=== PATIENT | female | born 1985 | race Caucasian/White ===

== ENCOUNTER 2019-10-05 17:10 | Emergency (ER) | payer OTHER, SELFPAY ==
[2019-10-05 17:18] VITALS: BP 99/80; PULSE 113; RESP 24; TEMP 36.8; O2SAT 100
--- NOTE | 2019-10-05 17:22 | ED.DENTAL ---
HPI - Dental/Oral General Chief complaint: Dental/Oral Stated complaint: tooth pain Time Seen by Provider: 10/05/19 17:24 Source: patient and RN notes reviewed Mode of arrival: ambulatory Limitations: no limitations History of Present Illness HPI Narrative: 33 old female presents with concern for right upper dental pain. She also reports right lower dental pain. Reports a tooth with a hole in and on the right upper side that she has been dealing with for approximately a year. Reports she has been treated one other time in the past year for an abscess in that tooth. Reports she has been trying to get into a dentist. She also reports a painful tooth on the right lower side. She denies any acute injury or dental trauma. She denies fever, cough, chest pain, shortness of breath, rash. Reports right-sided facial swelling. MD Complaint: tooth pain Teeth map: 1. Broken tooth, caries 2. Broken, caries Related Data Home Medications Medication Instructions Recorded Confirmed desogestrel-ethinyl estradiol 1 tablet PO DAILY 05/10/19 05/10/19 [Velivet Triphasic Regimen (28)] Allergies Allergy/AdvReac Type Severity Reaction Status Date / Time No Known Allergies Allergy Verified 10/05/19 17:34 Review of Systems Review of Systems: Narrative: CONSTITUTIONAL: Denies malaise, chills, sweats, or fever. ENT: Denies rhinorrhea, congestion, sinus pain, otalgia or sore throat. Reports right upper and lower dental pain, right upper facial swelling CARDIOVASCULAR: Denies chest pain, palpitations, or edema. RESPIRATORY: Denies cough or dyspnea. MUSCULOSKELETAL: Denies myalgia. NEUROLOGIC: Denies headache. All systems reviewed & are unremarkable except as noted in HPI and below PMFSH Past Medical History Medical History (Updated 10/05/19 @ 17:32 by Breana Lyons NP) Anxiety and depression Social History Social History (Updated 05/10/19 @ 09:17 by Le Leon NP) Smoking packs per day: 0.5 Smoking cigarettes per day: 10.0 Years smoked: 17 Smoking pack-years: 8.50 Smoking status: Current every day smoker Tobacco type: cigarettes Comments At time of signature, agree with nursing past medical, surgical, social and family history. There is no relevant family history pertinent to the presenting complaint Exam Narrative: Exam Narrative: GENERAL: Well-appearing, well-nourished, and in no acute distress. HEAD: Normocephalic, atraumatic. EYES: PERRLA, conjunctivae clear, and EOMI. No nystagmus. ENT: Nares clear, turbinates pink, no rhinorrhea or epistaxis. Mucous membranes moist. Oropharynx without erythema or lesions. Broken teeth, missing teeth, caries, tooth #1 broken, tooth #30 broken. No periapical abscess. Mild right facial edema consistent with abscess NECK: Supple. No lymphadenopathy. CHEST: No respiratory distress. Speaks in full sentences. HEART: Regular rate and rhythm. SKIN: Warm, dry, no rash. NEURO: Alert and oriented x3. PSYCH: Normal mood and affect Course Course Emergency Course: Patient is aware of diagnosis, understands and agrees to treatment plan. Anticipatory guidance given. Patient agrees to follow-up as directed and is aware of reasons to seek care at the emergency department. Portions of this record may have been created with voice recognition software Vital Signs Vital signs: Vital Signs Temperature 98.2 F 10/05/19 17:18 Pulse Rate 113 H 10/05/19 17:18 Respiratory Rate 24 H 10/05/19 17:18 Blood Pressure 99/80 L 10/05/19 17:18 Pulse Oximetry 100 10/05/19 17:18 Temperature 98.2 F 10/05/19 17:18 Pulse Rate 113 H 10/05/19 17:18 Respiratory Rate 24 H 10/05/19 17:18 Blood Pressure 99/80 L 10/05/19 17:18 Pulse Oximetry 100 10/05/19 17:18 Reviewed. MDM - Dental/Oral MDM Narrative Medical decision making narrative: Patients pain and complaint coupled with physical findings are consistant with dentalgia. There are no focal signs of space
== END 2019-10-05 17:38 | disposition home or self-care (01) ==
PROVIDERS: Emergency Provider Nurse Practitioner
DX: K04.7 Periapical abscess without sinus (principal); F17.210 Nicotine dependence, cigarettes, uncomplicated
CPT/HCPCS: 99213; G0463

== ENCOUNTER 2019-12-30 14:45 | Emergency (ER) | payer OTHER, SELFPAY ==
[2019-12-30 14:56] VITALS: BP 132/82; PULSE 90; RESP 20; TEMP 37.2; O2SAT 100
--- NOTE | 2019-12-30 15:25 | ED.GENADULT ---
HPI - General Adult General Chief complaint: Upper Respiratory Infection Stated complaint: sore throat Time Seen by Provider: 12/30/19 15:25 Source: patient and RN notes reviewed Mode of arrival: ambulatory Limitations: no limitations History of Present Illness HPI narrative: This is a 34 years old female presents to the office for an evaluation of sore throat for two days. Associated with feeling warm/chills. She took two days of her left over amoxicillin for her symptoms. Denies sick contact. Related Data Allergies Allergy/AdvReac Type Severity Reaction Status Date / Time No Known Allergies Allergy Verified 12/30/19 15:07 Review of Systems Review of Systems: Narrative: CONSTITUTIONAL: Denies fever. Reports hot flash/chills EYES: Denies visual changes ENT: Denies congestion. Reports sore throat CARDIOVASCULAR: Denies chest pain, palpitation RESPIRATORY: Denies dyspnea, cough GASTROINTESTINAL: Denies abdominal pain, nausea, vomiting SKIN: Denies rash MUSCULOSKELETAL: Denies acute joints pain NEUROLOGIC: Denies lightheaded All other systems reviewed are negative, except as documented in HPI. [facility] Past Medical History Medical History Anxiety and depression Social History Social History Smoking packs per day: 0.5 Smoking cigarettes per day: 10.0 Years smoked: 17 Smoking pack-years: 8.50 Smoking status: Current every day smoker Tobacco type: cigarettes Comments At time of signature, I agree with nursing past medical, surgical, social and family history. There is no relevant family history pertinent to the presenting complaint. Exam Narrative: Exam Narrative: GENERAL: This is a well-nourished, well-developed patient, in no apparent distress. EYES: Sclera clear/white. Vision is grossly intact. EARS: External ears normal, auditory canals clear and without drainage, TMs normal without perforation. Hearing grossly intact. NOSE: External nose normal with no obvious nasal discharge, nares without redness, no rhinorrhea. THROAT: Mucous membranes moist, posterior pharynx erythema, edematous with exudative NECK: Neck supple, non-tender without lymphadenopathy, masses or thyromegaly. CARDIOVASCULAR: Regular rate and rhythm without murmurs, gallops, or rubs. RESPIRATORY: Clear to auscultation. Breath sounds equal bilaterally. No wheezes, rales, or rhonchi. GASTROINTESTINAL: Abdomen soft, non-tender, nondistended. Bowel sounds are active. No hepato-splenomegaly, or palpable masses. No guarding. SKIN: warm, intact with no suspicious lesions or rash, good texture and turgor. NEURO: awake, alert, and oriented to person, place and time. There were no obvious focal neurologic abnormalities. Steady gait Jake Coma Scale Eye Opening: Spontaneous 4 Jake Coma Scale Motor: Obeys Commands 6 [place] Coma Scale Verbal: Oriented 5 Course Vital Signs Vital signs: Vital Signs Temperature 98.9 F 12/30/19 14:56 Pulse Rate 90 12/30/19 14:56 Respiratory Rate 20 12/30/19 14:56 Blood Pressure 132/82 12/30/19 14:56 Pulse Oximetry 100 12/30/19 14:56 Temperature 98.9 F 12/30/19 14:56 Pulse Rate 90 12/30/19 14:56 Respiratory Rate 20 12/30/19 14:56 Blood Pressure 132/82 12/30/19 14:56 Pulse Oximetry 100 12/30/19 14:56 Medical Decision Making MDM Narrative Medical decision making narrative: Discharge instructions reviewed with patient, as well as provided in writing per nursing staff. The instructions also include specific and strict return/GO TO THE ER as well as f/u information. All questions have been answered, and the patient deny any further questions with discharge and discharge plan. Differential Diagnosis Differential Diagnosis: Pharyngitis, sinusitis, URI Vital Signs Vital Signs: Vital Signs Temperature 98.9 F 12/30/19 14:56 Pulse Rate 90 12/30/19 14:56 Resp
== END 2019-12-30 15:39 | disposition home or self-care (01) ==
PROVIDERS: Emergency Provider Nurse Practitioner
DX: J03.90 Acute tonsillitis, unspecified (principal); F17.210 Nicotine dependence, cigarettes, uncomplicated
CPT/HCPCS: 87081; 87880; 99213; G0463

== ENCOUNTER 2020-03-17 16:42 | Emergency (ER) | payer OTHER, SELFPAY ==
[2020-03-17 16:46] VITALS: BP 127/82; PULSE 88; RESP 16; TEMP 37.1; O2SAT 98
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
== END 2020-03-17 17:23 | disposition home or self-care (01) ==
PROVIDERS: Emergency Provider Nurse Practitioner
DX: T24.111A Burn of first degree of right thigh, initial encounter (principal); T24.101A Burn of first degree of unspecified site of right lower limb, except ankle and foot, initial encounter; X12.XXXA Contact with other hot fluids, initial encounter; F17.210 Nicotine dependence, cigarettes, uncomplicated
CPT/HCPCS: 99213; G0463

== ENCOUNTER 2020-12-26 10:43 | Emergency (ER) | payer OTHER, SELFPAY ==
--- NOTE | 2020-12-26 10:48 | ED.URI ---
HPI - URI/Sore Throat General Chief Complaint: Upper Respiratory Infection Stated Complaint: sore throat Time Seen by Provider: 12/26/20 10:49 Source: patient and RN notes reviewed History of Present Illness HPI Narrative: Patient is a 35-year-old female who presents the urgent care with complaints of a sore throat and stuff on the tonsils . Patient states her symptoms started yesterday. Denies of any known exposure to strep or Covid. Denies of any use of [id number] medication for her symptoms. Denies of any other upper respiratory complaints. Denies of fever, chills, nausea, vomiting. No other acute complaints. No acute distress noted. Patient aware of the plan of care. Some parts of this dictation were generated by voice recognition software and may contain typographical and/or grammatical inaccuracies. Related Data Home Medications Medication Instructions Recorded Confirmed desogestrel-ethinyl estradiol tablet 12/26/20 12/26/20 [Velivet Triphasic Regimen (28)] Allergies Allergy/AdvReac Type Severity Reaction Status Date / Time No Known Allergies Allergy Verified 12/26/20 10:59 Review of Systems Review of Systems: Narrative: CONSTITUTIONAL: Denies fever, chills, or sweats. EYES: Denies visual changes, redness, or discharge. ENT: Reports of white spots on the tonsils and sore throat CARDIOVASCULAR: Denies chest pain, palpitations, or edema. RESPIRATORY: Denies cough or dyspnea. GASTROINTESTINAL: Denies abdominal pain, nausea, vomiting, or diarrhea. GENITOURINARY: Denies dysuria or hematuria. SKIN: Denies rash or itching. MUSCULOSKELETAL: Denies back pain, joint pain, or myalgia. NEUROLOGIC: Denies headache, numbness, or weakness. All other systems reviewed are negative, except as documented in HPI. [facility] Past Medical History Medical History (Updated 12/26/20 @ 11:17 by [place] Babin) Anxiety and depression Social History Social History Smoking packs per day: 0.5 Smoking cigarettes per day: 10.0 Years smoked: 17 Smoking pack-years: 8.50 Smoking status: Current every day smoker Tobacco type: cigarettes Comments At the time of my signature, I reviewed and agree with the nursing past medical, surgical, social, and family history. There is no relevant family history pertinent to the patient complaint. Exam Narrative: Exam Narrative: GENERAL: This is a well-nourished, well-developed patient, in no apparent distress. HEAD: normocephalic, atraumatic. EYES: PERRL. Sclera clear/white. Vision is grossly intact. EARS: External ears normal, auditory canals clear and without drainage, TMs normal without perforation. Hearing grossly intact. NOSE: External nose normal with no obvious nasal discharge, nares without redness, no rhinorrhea. THROAT: Mucous membranes moist, moderate erythema noted posterior oropharynx without tonsillar edema. Exudate noted to the left. Mild postnasal drainage. NECK: Neck supple, non-tender without lymphadenopathy CARDIOVASCULAR: Regular rate and rhythm without murmurs, gallops, or rubs. RESPIRATORY: Clear to auscultation. Breath sounds equal bilaterally. No wheezes, rales, or rhonchi. SKIN: warm, intact with no suspicious lesions or rash, good texture and turgor. NEURO: awake, alert, and oriented to person, place and time. There were no obvious focal neurologic abnormalities. EXTREMITIES: No clubbing, cyanosis, or edema. Course Vital Signs Vital signs: Vital Signs Temperature 98.6 F 12/26/20 10:55 Pulse Rate 100 12/26/20 10:55 Respiratory Rate 18 12/26/20 10:55 Blood Pressure 120/73 12/26/20 10:55 Pulse Oximetry 98 12/26/20 10:55 Temperature 98.6 F 12/26/20 10:55 Pulse Rate 100 12/26/20 10:55 Respiratory Rate 18 12/26/20 10:55 Blood Pressure 120/73 12/26/20 10:55 Pulse Oximetry 98 12/26/20 10:55 Reviewed MDM - URI/Sore Throat MDM Narrative Medical dec
[2020-12-26 10:55] VITALS: BP 120/73; PULSE 100; RESP 18; TEMP 37; O2SAT 98
== END 2020-12-26 11:20 | disposition home or self-care (01) ==
PROVIDERS: Emergency Provider Nurse Practitioner Family; PCP Nurse Practitioner Family
DX: J02.9 Acute pharyngitis, unspecified (principal); F17.210 Nicotine dependence, cigarettes, uncomplicated
CPT/HCPCS: 87081; 87880; 99213; G0463

== ENCOUNTER 2021-05-26 16:08 | Emergency (ER) | payer OTHER, SELFPAY ==
[2021-05-26 16:13] VITALS: BP 134/94; PULSE 94; RESP 18; TEMP 37; O2SAT 98
--- NOTE | 2021-05-26 16:55 | ED.SKABFB ---
HPI - Skin/Abscess/Foreign Bdy General Chief complaint: Skin/Abscess/Foreign Body Stated complaint: Skin Sore Source: patient and RN notes reviewed Limitations: no limitations History of Present Illness HPI narrative: The patient, previously healthy volunteers/[employer], presents with skin eruption. Patient states she has a couple day worsening of a least a couple month history of cyst on her upper back. The last couple days is gotten more tender and red; no fever, spontaneous discharge, streaking. Symptoms are mild, worse with palpation; she declines I&D preferring antibiotics Related Data Allergies Allergy/AdvReac Type Severity Reaction Status Date / Time No Known Allergies Allergy Verified 05/26/21 16:21 Review of Systems Review of Systems: The patient has been informed that they may have pre-hypertension or Hypertension based on a BP reading in the department. I recommend that the patient call the primary care provider listed on their discharge instructions or a physician of their choice this week to arrange follow up for further evaluation of possible pre-hypertension or Hypertension General/Constitutional: No weight loss,fever Eyes: N0: Redness,discharge Ears/Nose/Throat: No: Epistaxis,ear discharge Respiratory: Denies: Hemoptysis Gastrointestinal: No Vomiting, Bleeding-rectal Skin: REPORTS lumps, eruption Neurologic: No Focal Weakness,Sz Hematologic: Denies: Petechiae/Purpura Psychiatric: No: Suicida ideationl All Other Systems: Reviewed and Negative [facility] Past Medical History Medical History (Updated 05/26/21 @ 16:58 by Doroteo Hui MD) Anxiety and depression Social History Social History Smoking packs per day: 0.5 Smoking cigarettes per day: 10.0 Years smoked: 17 Smoking pack-years: 8.50 Smoking status: Current every day smoker Tobacco type: cigarettes Comments At time of signature, agree with nursing past medical, surgical, social and family history. There is no relevant family history pertinent to the presenting complaint Exam Narrative: General Appearance: Well appearing, No distress Skin: Warm, Dry; upper midline back with quarter sized 3 cm cyst with mild superficial redness; no fluctuance/abscess/streaking EYE: PERRLA, Conjunctiva clear Ears: External ear normal Nose: Normal nose Mouth/Throat: Normal appearing, Normal lips, Supple Respiratory: Airway patent, No respiratory distress Musculoskeletal: Full ROM Neurological: A&O x3, CN II-X intact Psychiatric: Normal mood, Normal affect Course Vital Signs Vital signs: Vital Signs Temperature 98.6 F 05/26/21 16:13 Pulse Rate 94 05/26/21 16:13 Respiratory Rate 18 05/26/21 16:13 Blood Pressure 134/94 H 05/26/21 16:13 Pulse Oximetry 98 05/26/21 16:13 Temperature 98.6 F 05/26/21 16:13 Pulse Rate 94 05/26/21 16:13 Respiratory Rate 18 05/26/21 16:13 Blood Pressure 134/94 H 05/26/21 16:13 Pulse Oximetry 98 05/26/21 16:13 Discharge Plan Discharge Clinical Impression: Infected epidermoid cyst Patient Disposition: Home, Self-Care Condition: Stable Instructions: Epidermal Inclusion Cysts (ED) Additional Instructions: Take clindamycin with food, antiacid and/or probiotic; stop if diarrhea occurs Prescriptions: New clindamycin HCl 300 mg capsule 300 mg PO TID Qty: 30 RF: 0 mupirocin 2 % ointment 1 applic TOPICAL TID Qty: 30 RF: 0 Follow-up/Referrals: Paiz,Amanda Pappas APN [Primary Care Provider] -
--- NOTE | 2021-05-28 16:21 | PC.NURSE ---
pt phoned in and states she has diarrhea after being started on clindamycin. states prescribed by Dr. Hui 05/26 and he told her to get ahold of him if diarrhea occurred. nurse spoke with doctor who prescribes keflex 1 gram bid for 7 days and bactrim 1 tab bid for 7 days. pt aware of new prescriptions and informed to discontinue clindamycin and be certain to follow-up as doctor instructs.
== END 2021-05-26 17:02 | disposition home or self-care (01) ==
PROVIDERS: Emergency Provider Emergency Medicine; PCP Nurse Practitioner Family
DX: L72.0 Epidermal cyst (principal); F17.210 Nicotine dependence, cigarettes, uncomplicated
CPT/HCPCS: 99213; G0463

== ENCOUNTER 2021-10-02 11:36 | Emergency (ER) | payer OTHER, SELFPAY ==
--- NOTE | ~2021-10-02 | XR_ITS ---
EXAMINATION: XR chest 2V DATE: 10/02/2021 12:03 INDICATION: Cough and abnormal right-sided lung zones. TECHNIQUE: PA and lateral views of the chest were obtained. COMPARISON: Chest radiograph dated 02/02/2019 FINDINGS: The lungs remain clear with no focal airspace opacities, pulmonary edema, pleural effusion or pneumot horax. The cardiomediastinal silhouette is normal. Visualized bones and soft tissues are unremarkable . IMPRESSION: 1. No acute cardiopulmonary disease. Reviewed, dictated and finalized at location B.
[2021-10-02 11:46] VITALS: BP 123/81; PULSE 90; RESP 18; TEMP 37.1; O2SAT 100
--- NOTE | 2021-10-02 12:14 | ED.URI ---
HPI - URI/Sore Throat General Chief Complaint: Upper Respiratory Infection Stated Complaint: Body Aches/Headache Time Seen by Provider: 10/02/21 12:10 Source: patient and RN notes reviewed Mode of arrival: ambulatory Limitations: no limitations History of Present Illness HPI Narrative: 35-year-old female presents with concern for 3-week history of sinus pressure, congestion, cough, fatigue, chills, body aches. Reports symptoms have not improved despite [id number] intervention and time. She denies current fever. She reports she has been using DayQuil with very mild relief of symptoms temporarily. She denies current shortness of breath. She denies known sick contacts. MD elicited complaint: cough and nasal congestion Related Data Allergies Allergy/AdvReac Type Severity Reaction Status Date / Time No Known Allergies Allergy Verified 10/02/21 11:47 Review of Systems Review of Systems: CONSTITUTIONAL: Reports malaise, chills, sweats. Denies fever. EYES: Denies visual changes, redness, or discharge. ENT: Reports rhinorrhea, congestion, sinus pain. Denies otalgia and sore throat. CARDIOVASCULAR: Denies chest pain, palpitations, or edema. RESPIRATORY: Reports cough. Denies dyspnea. GASTROINTESTINAL: Denies abdominal pain, nausea, vomiting, diarrhea SKIN: Denies rash or itching. MUSCULOSKELETAL: Reports myalgia. NEUROLOGIC: Denies headache. All systems reviewed & are unremarkable except as noted in HPI and below PMFSH Past Medical History Medical History (Updated 10/02/21 @ 12:19 by Breana Lyons NP) Anxiety and depression Social History Social History Smoking packs per day: 0.5 Smoking cigarettes per day: 10.0 Years smoked: 17 Smoking pack-years: 8.50 Smoking status: Current every day smoker Tobacco type: cigarettes Comments At time of signature, agree with nursing past medical, surgical, social and family history. There is no relevant family history pertinent to the presenting complaint Exam Narrative: GENERAL: Well-appearing, well-nourished, and in no acute distress. HEAD: Normocephalic EYES: PERRLA, conjunctivae clear ENT: Nares clear, turbinates edematous and erythematous, sinus tenderness. Mucous membranes moist. TM pearly ortiz with sharp light reflex bilaterally; no tragal tenderness. Oropharynx not erythematous without lesions. Tonsils not enlarged and without exudate, no drooling, no hoarseness, no trismus, uvula midline. NECK: Supple. No lymphadenopathy CHEST: Diminished bilateral bases with scattered crackles. No wheezing, rhonchi, rales, or stridor. No respiratory distress, speaks in full sentences. HEART: Regular rate and rhythm. No murmur heard. SKIN: Warm, dry, no rash. NEURO: Alert and oriented x3. PSYCH: Normal mood and affect Course Course Emergency Course: Patient is aware of diagnosis, understands and agrees to treatment plan. Anticipatory guidance given. Patient agrees to follow-up as directed and is aware of reasons to seek care at the emergency department. Portions of this record may have been created with voice recognition software Level of Care: Express Care Visit Vital Signs Vital signs: Vital Signs Temperature 98.8 F 10/02/21 11:46 Pulse Rate 90 10/02/21 11:46 Respiratory Rate 18 10/02/21 11:46 Blood Pressure 123/81 10/02/21 11:46 Pulse Oximetry 100 10/02/21 11:46 Temperature 98.8 F 10/02/21 11:46 Pulse Rate 90 10/02/21 11:46 Respiratory Rate 18 10/02/21 11:46 Blood Pressure 123/81 10/02/21 11:46 Pulse Oximetry 100 10/02/21 11:46 Reviewed. MDM - URI/Sore Throat MDM Narrative Medical decision making narrative: Differential diagnosis considered: Hameed virus, strep pharyngitis, allergic rhinitis, upper respiratory tract infection, sinusitis, rhinosinusitis, nasopharyngitis. viral pharyngitis, otitis media, otitis externa, pneumonia, bronchitis, viral cough syndrome, viral sy
== END 2021-10-02 12:24 | disposition home or self-care (01) ==
PROVIDERS: Emergency Provider Nurse Practitioner; PCP Nurse Practitioner Family
DX: J32.9 Chronic sinusitis, unspecified (principal); J40 Bronchitis, not specified as acute or chronic; F17.210 Nicotine dependence, cigarettes, uncomplicated
CPT/HCPCS: 71046; 99213; G0463

== ENCOUNTER 2022-02-05 10:42 | Emergency (ER) | payer OTHER, SELFPAY ==
--- NOTE | 2022-02-05 10:44 | ED.URI ---
HPI - URI/Sore Throat General Stated Complaint: cough congestionsore throat Time Seen by Provider: 02/05/22 10:44 Source: patient and RN notes reviewed History of Present Illness HPI Narrative: Patient is a 36-year-old female who presents the urgent care with complaints of cough, chest congestion, sore throat and sinus pressure. Patient states that it started 4 weeks ago and has been worse in the last 2 days. Patient denies any ill exposures. Denies any fevers. No other acute complaints. Patient states she has been using Mucinex, Chloraseptic and cold and flu medication [id number]. No acute distress noted. Patient with the plan of care. Some parts of this dictation were generated by voice recognition software and may contain typographical and/or grammatical inaccuracies. Related Data Allergies Allergy/AdvReac Type Severity Reaction Status Date / Time No Known Allergies Allergy Verified 02/05/22 10:54 Review of Systems Review of Systems: CONSTITUTIONAL: Denies fever, chills, or sweats. EYES: Denies visual changes, redness, or discharge. ENT: Reports of rhinorrhea, postnasal drainage, sore throat and sinus pressure/congestion CARDIOVASCULAR: Denies chest pain, palpitations, or edema. RESPIRATORY: Reports of chest congestion, cough without wheezing GASTROINTESTINAL: Denies abdominal pain, nausea, vomiting, or diarrhea. GENITOURINARY: Denies dysuria or hematuria. SKIN: Denies rash or itching. MUSCULOSKELETAL: Denies back pain, joint pain, or myalgia. NEUROLOGIC: Denies headache, numbness, or weakness. All other systems reviewed are negative, except as documented in HPI. ON LICENSE OF [facility] Past Medical History Medical History (Updated 02/05/22 @ 11:03 by TEX Babin) Anxiety and depression Social History Social History Smoking packs per day: 0.5 Smoking cigarettes per day: 10.0 Years smoked: 17 Smoking pack-years: 8.50 Smoking status: Current every day smoker Tobacco type: cigarettes Comments At the time of my signature, I reviewed and agree with the nursing past medical, surgical, social, and family history. There is no relevant family history pertinent to the patient complaint. Exam Narrative: GENERAL: This is a well-nourished, well-developed patient, in no apparent distress. HEAD: normocephalic, atraumatic. EYES: PERRL. Sclera clear/white. Vision is grossly intact. EARS: External ears normal, auditory canals clear and without drainage, TMs normal without perforation. Hearing grossly intact. NOSE: External nose normal with no obvious nasal discharge. Moderate bilateral erythemic nares with clear to yellow rhinorrhea THROAT: Mucous membranes moist. Mild erythema noted posterior pharynx with moderate postnasal drainage NECK: Neck supple, non-tender without lymphadenopathy CARDIOVASCULAR: Regular rate and rhythm without murmurs, gallops, or rubs. RESPIRATORY: Clear to auscultation. Breath sounds equal bilaterally. No wheezes, rales, or rhonchi. SKIN: warm, intact with no suspicious lesions or rash, good texture and turgor. NEURO: awake, alert, and oriented to person, place and time. There were no obvious focal neurologic abnormalities. EXTREMITIES: No clubbing, cyanosis, or edema. Course Course Level of Care: Express Care Visit Vital Signs Vital signs: Vital Signs Temperature 98.2 F 02/05/22 10:48 Pulse Rate 97 02/05/22 10:48 Respiratory Rate 20 02/05/22 10:48 Blood Pressure 125/93 H 02/05/22 10:48 Pulse Oximetry 99 02/05/22 10:48 Oxygen Delivery Room Air 02/05/22 10:48 Temperature 98.2 F 02/05/22 10:48 Pulse Rate 97 02/05/22 10:48 Respiratory Rate 20 02/05/22 10:48 Blood Pressure 125/93 H 02/05/22 10:48 Pulse Oximetry 99 02/05/22 10:48 Oxygen Delivery Room Air 02/05/22 10:48 Reviewed-patient is informed that they may have pre-hypertension or hypertension based on a blood pressure reading in th
[2022-02-05 10:48] VITALS: BP 125/93; PULSE 97; RESP 20; TEMP 36.8; O2SAT 99
[2022-02-05 11:10] VITALS: BP 125/93; PULSE 97; RESP 20; TEMP 36.8; O2SAT 99
== END 2022-02-05 11:05 | disposition home or self-care (01) ==
PROVIDERS: Emergency Provider Nurse Practitioner Family; PCP Nurse Practitioner Family
DX: J40 Bronchitis, not specified as acute or chronic (principal); J32.9 Chronic sinusitis, unspecified; F17.210 Nicotine dependence, cigarettes, uncomplicated
CPT/HCPCS: 99213; G0463

== ENCOUNTER 2022-07-22 08:40 | Emergency (ER) | payer OTHER, SELFPAY ==
[2022-07-22 08:44] VITALS: BP 126/93; PULSE 80; RESP 16; TEMP 36.7; O2SAT 100
--- NOTE | 2022-07-22 08:48 | ED.URI ---
HPI - URI/Sore Throat General Chief Complaint: Upper Respiratory Infection Stated Complaint: flu Time Seen by Provider: 07/22/22 08:48 Source: patient and RN notes reviewed History of Present Illness HPI Narrative: Patient is a 36-year-old female presents to urgent care with complaints of flu-like symptoms for 2 and half weeks. Patient states it started with body aches which has resolved and now she has a sore throat headache. Patient has been taking DayQuil. Denies any fevers, nausea or vomiting. No other acute complaints. Patient was negative for COVID at home. No acute distress noted. Patient aware of the plan of care. Some parts of this dictation were generated by voice recognition software and may contain typographical and/or grammatical inaccuracies. Related Data Allergies Allergy/AdvReac Type Severity Reaction Status Date / Time No Known Allergies Allergy Verified 02/05/22 11:10 Review of Systems Review of Systems: CONSTITUTIONAL: Denies fever, chills, or sweats. EYES: Denies visual changes, redness, or discharge. ENT: Reports sore throat congestion CARDIOVASCULAR: Denies chest pain, palpitations, or edema. RESPIRATORY: Reports a mild cough without dyspnea GASTROINTESTINAL: Denies abdominal pain, nausea, vomiting, or diarrhea. GENITOURINARY: Denies dysuria or hematuria. SKIN: Denies rash or itching. MUSCULOSKELETAL: Denies back pain, joint pain, or myalgia. NEUROLOGIC: Reports of headache All other systems reviewed are negative, except as documented in HPI. [facility] Past Medical History Medical History (Updated 07/22/22 @ 09:17 by TEX Babin) Anxiety and depression Social History Social History Smoking packs per day: 0.5 Smoking cigarettes per day: 10.0 Years smoked: 17 Smoking pack-years: 8.50 Smoking status: Current every day smoker Tobacco type: cigarettes Comments At the time of my signature, I reviewed and agree with the nursing past medical, surgical, social, and family history. There is no relevant family history pertinent to the patient complaint. Exam Narrative: GENERAL: This is a well-nourished, well-developed patient, in no apparent distress. HEAD: normocephalic, atraumatic. EYES: PERRL. Sclera clear/white. Vision is grossly intact. EARS: External ears normal, auditory canals clear and without drainage, TMs normal without perforation. Hearing grossly intact. NOSE: External nose normal with no obvious nasal discharge, nares without redness, clear rhinorrhea. THROAT: Mucous membranes moist, mild erythema in the posterior pharynx with moderate postnasal drainage. NECK: Neck supple, non-tender without lymphadenopathy, masses or thyromegaly. CARDIOVASCULAR: Regular rate and rhythm without murmurs, gallops, or rubs. RESPIRATORY: Clear to auscultation. Breath sounds equal bilaterally. No wheezes, rales, or rhonchi. SKIN: warm, intact with no suspicious lesions or rash, good texture and turgor. NEURO: awake, alert, and oriented to person, place and time. There were no obvious focal neurologic abnormalities. EXTREMITIES: No clubbing, cyanosis, or edema. Course Course Level of Care: Express Care Visit Vital Signs Vital signs: Vital Signs Temperature 98.1 F 07/22/22 08:44 Pulse Rate 80 07/22/22 08:44 Respiratory Rate 16 07/22/22 08:44 Blood Pressure 126/93 H 07/22/22 08:44 Pulse Oximetry 100 07/22/22 08:44 Oxygen Delivery Room Air 07/22/22 08:44 Temperature 98.1 F 07/22/22 08:44 Pulse Rate 80 07/22/22 08:44 Respiratory Rate 16 07/22/22 08:44 Blood Pressure 126/93 H 07/22/22 08:44 Pulse Oximetry 100 07/22/22 08:44 Oxygen Delivery Room Air 07/22/22 08:44 Reviewed- Patient is informed that they may have pre-hypertension or hypertension based on a blood pressure reading in the department. I recommend the patient call the primary care provider listed on their discharge instructi
== END 2022-07-22 09:20 | disposition home or self-care (01) ==
PROVIDERS: Emergency Provider Nurse Practitioner Family; PCP Nurse Practitioner Family
DX: J02.9 Acute pharyngitis, unspecified (principal); F17.210 Nicotine dependence, cigarettes, uncomplicated
CPT/HCPCS: 87081; 87880; 99213; G0463

== ENCOUNTER 2023-05-21 14:23 | Emergency (ER) | payer OTHER, SELFPAY ==
[2023-05-21 14:30] VITALS: BP 139/93; PULSE 87; RESP 16; TEMP 36.6; O2SAT 99
[2023-05-21 14:56] VITALS: BP 139/93; PULSE 87; RESP 16; TEMP 36.6; O2SAT 99
--- NOTE | 2023-05-21 14:57 | ED.GENADULT ---
HPI - General Adult General Chief complaint: Upper Respiratory Infection Stated complaint: Fever/Shortness of Beath/Cough Time Seen by Provider: 05/21/23 14:57 Source: patient, RN notes reviewed and old records reviewed Mode of arrival: ambulatory Limitations: no limitations History of Present Illness HPI narrative: 37-year-old female complaints to Express Care with complaint of cough, congestion, myalgia, fever this started Wednesday. Patient states was exposed to influenza A. Patient denies chest pain, dizziness, weakness, vomiting. MD complaint: Cough, congestion Onset (ago): day(s) (4) Related Data Allergies Allergy/AdvReac Type Severity Reaction Status Date / Time No Known Allergies Allergy Verified 02/05/22 11:10 Review of Systems Constitutional: Constitutional: Reports as per HPI, Reports body ache(s), Denies chills, Reports fatigue, Reports fever(s) and Denies headache(s) Eyes: Eyes: Reports no additional eye complaints and Denies blurry vision ENT: Reports as per HPI, Denies vertigo, Denies dizziness, Denies ear discharge, Denies otalgia, Denies facial pain, Reports headache(s), Reports nasal congestion, Reports nasal discharge, Denies sinus pain, Denies sinus pressure and Denies sore throat Cardiovascular: Cardiovascular: Reports no additional cardiovascular complaints, Denies chest pain, Denies chest pain at rest, Denies rapid heart rate and Denies dyspnea Respiratory: Respiratory: Reports no additional respiratory complaints, Reports chest congestion, Reports cough, Denies pain on inspiration, Denies pain with cough and Denies dyspnea Gastrointestinal: Gastrointestinal: Denies abdominal pain, Denies diarrhea, Denies nausea and Denies vomiting Integumentary/Breasts: Skin/Breast: Denies rash Neurologic: Reports system reviewed and no additional complaints, except as documented, Denies vertigo, Denies dizziness and Denies headache(s) Endocrine: Endocrine: Denies fatigue [facility] Past Medical History Medical History (Updated 05/21/23 @ 15:08 by Rosemarie Turner APRN) Anxiety and depression Social History Social History Smoking packs per day: 0.5 Smoking cigarettes per day: 10.0 Years smoked: 17 Smoking pack-years: 8.50 Smoking status: Current every day smoker Tobacco type: cigarettes Comments At the time of my signature, I reviewed and agree with the nursing past medical, surgical, social, and family history. There is no relevant family history pertinent to the patient complaint. Exam Const: General: cooperative, healthy appearing, no acute distress and well nourished Nutritional Appearance: well nourished Orientation/consciousness: patient oriented x3 Limitations: no limitations HENMT: Head: normal to inspection and normocephalic Ears: external ears normal, TM's normal bilaterally, mastoids normal and Abnormal EAC present Face/Nose/Sinus: normal facial exam Face and sinus: normal facial exam Mouth: Yes Normal oral and palatal mucosa present, Yes oropharynx normal and Yes moist mucous membranes Throat: tonsils normal, uvula midline and no uvular edema Eyes: General: appearance normal, both eyes and all related structures Sclera: sclerae normal Pupils: Equal, round and reactive pupils present Resp: Effort & Inspection: normal respiratory effort, able to speak in complete sentences, no audible wheezes, no cough, no respiratory distress and no retractions Auscultation: clear to auscultation bilaterally, no crackles, no rales, no rhonchi and no wheezes Cardio: Rate: regular rate Rhythm: regular rhythm Skin: General skin exam: normal color and no rashes or lesions noted Neuro: General: patient oriented x3 Cranial nerves: Yes Equal, round and reactive pupils present Psych: Appearance: grossly normal Mental Status: mental status grossly normal Speech and movement: Normal speech and movement present Affect: normal affect Course
== END 2023-05-21 15:17 | disposition home or self-care (01) ==
PROVIDERS: Emergency Provider Registered Nurse; PCP Nurse Practitioner Family
DX: J11.1 Influenza due to unidentified influenza virus with other respiratory manifestations (principal); F17.210 Nicotine dependence, cigarettes, uncomplicated
CPT/HCPCS: 87804; 99213; G0463

== ENCOUNTER 2023-05-22 08:29 | Emergency (ER) | payer OTHER, SELFPAY ==
[2023-05-22 09:02] VITALS: BP 114/76; PULSE 86; RESP 20; TEMP 36.4; O2SAT 100
--- NOTE | 2023-05-22 09:19 | ED.EYEPROB ---
HPI - Eye Problem General Chief complaint: Eye Problems Stated complaint: Possible [place] [facility] Time Seen by Provider: 05/22/23 09:20 Source: patient Mode of arrival: ambulatory Limitations: no limitations History of Present Illness HPI Narrative: 37-year-old female presented for concern of pink eye. Endorses waking this morning with right eye redness, itching, burning, and yellow drainage. 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 Patient was diagnosed with flu yesterday. denies vision changes, photophobia, foreign body sensation, headache, nausea vomiting. MD chief complaint: eye pain Related Data Allergies Allergy/AdvReac Type Severity Reaction Status Date / Time No Known Allergies Allergy Verified 02/05/22 11:10 Review of Systems Review of Systems: CONSTITUTIONAL: Denies body aches, fever, chills EYES:Endorses drainage and redness and pain to right eye; denies FB sensation, photophobia, visual changes ENT: Denies rhinorrhea, congestion, sore throat, or otalgia. CARDIOVASCULAR: Denies chest pain, palpitations RESPIRATORY: Denies cough or dyspnea. GASTROINTESTINAL: Denies abdominal pain, nausea, vomiting, or diarrhea. SKIN: Denies rash, itching, or wounds. MUSCULOSKELETAL: Denies back pain, joint pain, or myalgia. NEUROLOGIC: Denies headache, numbness, tingling, or weakness. All systems reviewed & are unremarkable except as noted in HPI and below PMFSH Past Medical History Medical History Anxiety and depression Social History Social History Smoking packs per day: 0.5 Smoking cigarettes per day: 10.0 Years smoked: 17 Smoking pack-years: 8.50 Smoking status: Current every day smoker Tobacco type: cigarettes Comments At time of signature, I have reviewed and agree with nursing past medical, surgical, social and family history unless otherwise noted. Please see nursing chart for further information. There is no relevant family history pertinent to the presenting complaint Exam Narrative: GENERAL: Well-appearing HEAD: Normocephalic, atraumatic. EYES: Right mild conjunctival injection, purulent drainage. no eye lid swelling/redness. EOMI. Lid eversion shows no FB. ENT: Mucous membranes pink and moist. Purulent rhinorrhea; erythema to both nares. right nare mildly tender with palpation no ulcer or folliculitis on exam . TMs normal bilaterally. Throat normal. Uvula midline. CHEST: Clear to auscultation. HEART: Regular rate and rhythm. ABDOMEN: Soft, nontender, nondistended SKIN: Warm, dry, no rash. Normal skin turgor. NEURO: No focal deficits. Alert and oriented x3 PSYCH: Normal affect. Course Course Emergency Course: Patient is aware of diagnosis, understands and agrees to treatment plan. Anticipatory guidance given. Patient agrees to follow-up as directed and is aware of reasons to seek care at the emergency department. Portions of this record may have been created with voice recognition software Level of Care: Express Care Visit Vital Signs Vital signs: Vital Signs Temperature 97.5 F L 05/22/23 09:02 Pulse Rate 86 05/22/23 09:02 Respiratory Rate 20 05/22/23 09:02 Blood Pressure 114/76 05/22/23 09:02 Pulse Oximetry 100 05/22/23 09:02 Oxygen Delivery Room Air 05/22/23 09:02 Temperature 97.5 F L 05/22/23 09:02 Pulse Rate 86 05/22/23 09:02 Respiratory Rate 20 05/22/23 09:02 Blood Pressure 114/76 05/22/23 09:02 Pulse Oximetry 100 05/22/23 09:02 Oxygen Delivery Room Air 05/22/23 09:02 MDM - Eye Problem MDM Narrative Medical decision making narrative: Discussed physical exam findings consistent with right bacterial conjunctivitis. Will send mupirocin for right nostril pain described as pimple. Advised supportive measures and signs/symptoms to go to the ER. Pt is appropriate for outpt treatmen
== END 2023-05-22 09:33 | disposition home or self-care (01) ==
PROVIDERS: Emergency Provider Nurse Practitioner Family; PCP Nurse Practitioner Family
DX: H10.9 Unspecified conjunctivitis (principal); J34.89 Other specified disorders of nose and nasal sinuses; F17.210 Nicotine dependence, cigarettes, uncomplicated
CPT/HCPCS: 99213; G0463

== ENCOUNTER 2023-11-11 18:22 | Emergency (ER) | payer OTHER, SELFPAY ==
[2023-11-11 18:35] VITALS: BP 134/73; PULSE 95; RESP 16; TEMP 37.2; O2SAT 99
--- NOTE | 2023-11-11 18:44 | ED.FEMALEGU ---
HPI - Female Genitourinary General Chief complaint: Urogenital-Female Stated complaint: Poss uti Source: patient and RN notes reviewed Mode of arrival: ambulatory Limitations: no limitations History of Present Illness HPI Narrative: 38-year-old female presented for complaint of burning with urination, fishy vaginal odor, itching, and urinary frequency. Onset 1 week. Endorses new sexual partner but denies concern for STD. Denies vaginal discharge, hematuria, nausea, vomiting, abdominal pain, flank pain, constipation, diarrhea, fevers or chills. Related Data Home Medications Medication Instructions Recorded Confirmed escitalopram oxalate 5 mg tablet 5 mg PO DAILY 11/11/23 11/11/23 Allergies Allergy/AdvReac Type Severity Reaction Status Date / Time No Known Allergies Allergy Verified 02/05/22 11:10 Review of Systems Review of Systems: CONSTITUTIONAL: Denies body aches, fever, chills, or sweats. CARDIOVASCULAR: Denies chest pain, palpitations, or edema. RESPIRATORY: Denies cough or dyspnea. GASTROINTESTINAL: Denies abdominal pain, nausea, vomiting, or diarrhea. GENITOURINARY: Reports dysuria, frequency, denies urgency, hematuria, flank pain SKIN: Denies rash, itching, or wounds. MUSCULOSKELETAL: Denies back pain or myalgia. [facility] Past Medical History Medical History Anxiety and depression Social History Social History Smoking packs per day: 0.5 Smoking cigarettes per day: 10.0 Years smoked: 17 Smoking pack-years: 8.50 Smoking status: Current every day smoker Tobacco type: cigarettes Comments At time of signature, I have reviewed and agree with nursing past medical, surgical, social and family history unless otherwise noted. Please see nursing chart for further information. There is no relevant family history pertinent to the presenting complaint Exam Narrative: GENERAL: Well-appearing ENT: Mucous membranes pink and moist. CHEST: No respiratory distress. Clear to auscultation. HEART: Regular rate and rhythm. ABDOMEN: Soft, nontender, nondistended, normal active bowel sounds. No CVA tenderness SKIN: Warm, dry, no rash. NEURO: No focal deficits. Alert and oriented x3. Gait steady. PSYCH: Normal affect. Course Course Emergency Course: Patient is aware of diagnosis, understands and agrees to treatment plan. Anticipatory guidance given. Patient agrees to follow-up as directed and is aware of reasons to seek care at the emergency department. Portions of this record may have been created with voice recognition software Level of Care: Express Care Visit Vital Signs Vital signs: Reviewed MDM - Female Genitourinary MDM Narrative Medical decision making narrative: Discussed physical exam findings and urine. Will treat for BV and uti. Advised supportive measures and signs/symptoms to go to the ER. Pt is appropriate for outpt treatment and f/u. Differential Diagnosis Differential diagnosis: Likely urinary tract infection, bacterial vaginosis, trichomoniasis, vaginitis and cystitis Discharge Plan Discharge Clinical Impression: Dysuria Patient Disposition: Home, Self-Care Condition: Stable Instructions: Antibiotic Form, Bacterial Vaginosis (ED), Urinary Tract Infection in Women (ED) Additional Instructions: You will be treated for UTI and BV. Take the antibiotic as prescribed The urine will be sent of for a culture to identify what type of bacteria is causing your infection. If the culture shows that the antibiotic will not get rid of your infection, you will be notified and a new antibiotic will be called in for you. Increase water intake you will need to follow up with your PCP or Obgyn, call to schedule an appointment. Go to the ER for any worsening symptoms or concerns Prescriptions: New metronidazole 500 mg tablet 500 mg PO Q12H 7
== END 2023-11-11 18:55 | disposition home or self-care (01) ==
PROVIDERS: Emergency Provider Nurse Practitioner Family; PCP Nurse Practitioner Family
DX: R30.0 Dysuria (principal); F17.210 Nicotine dependence, cigarettes, uncomplicated; F41.9 Anxiety disorder, unspecified; F32.A Depression, unspecified
CPT/HCPCS: 81003; 87077; 87086; 87088; 87186; 99213; G0463

== ENCOUNTER 2024-01-10 17:01 | Emergency (ER) | payer OTHER, SELFPAY ==
[2024-01-10 17:22] VITALS: BP 124/76; PULSE 95; RESP 20; TEMP 36.6; O2SAT 98
--- NOTE | 2024-01-10 17:31 | ED.ALLEREA ---
HPI - Allergic Reaction General Chief complaint: Wound/Laceration Stated complaint: left ear sting Time Seen by Provider: 01/10/24 17:32 Source: patient Mode of arrival: ambulatory Limitations: no limitations History of Present Illness HPI narrative: 38-year-old female presents with complaint of redness, swelling, tenderness to left ear. Patient was stung by wasps yesterday. Taking Zyrtec and states has with some swelling. All systems reviewed and negative except as noted above. Related Data Home Medications Medication Instructions Recorded Confirmed escitalopram oxalate 5 mg tablet 5 mg PO DAILY 11/11/23 01/10/24 buspirone 5 mg tablet 5 mg PO BID 01/10/24 01/10/24 Allergies Allergy/AdvReac Type Severity Reaction Status Date / Time No Known Allergies Allergy Verified 11/11/23 18:57 Review of Systems Review of Systems: CONSTITUTIONAL: Denies fever, chills, or sweats. EYES: Denies visual changes, redness, or discharge. ENT: Denies rhinorrhea, congestion, sore throat, or otalgia. Reports pain, swelling and tenderness to left external ear CARDIOVASCULAR: Denies chest pain, palpitations, or edema. RESPIRATORY: Denies cough or dyspnea. GASTROINTESTINAL: Denies abdominal pain, nausea, vomiting, or diarrhea. GENITOURINARY: Denies dysuria or hematuria. SKIN: Denies rash or itching. MUSCULOSKELETAL: Denies back pain, joint pain, or myalgia. NEUROLOGIC: Denies headache, numbness, or weakness. PSYCHIATRIC: Denies anxiety or depression. All other systems reviewed are negative, except as documented in HPI. [facility] Past Medical History Medical History (Updated 01/10/24 @ 17:46 by Elsa Wang NP) Anxiety and depression Social History Social History Smoking packs per day: 0.5 Smoking cigarettes per day: 10.0 Years smoked: 17 Smoking pack-years: 8.50 Smoking status: Current every day smoker Tobacco type: cigarettes Comments At time of signature, agree with nursing past medical, surgical, social and family history. There is no relevant family history pertinent to the presenting complaint. Exam Narrative: GENERAL: This is a well-nourished, well-developed patient, in no apparent distress. HEAD: normocephalic, atraumatic. EYES: PERRL. Sclera clear/white. Vision is grossly intact. EARS: External left ear erythematous, swollen and tender on palpation right external ear normal., auditory canals clear and without drainage, TMs normal without perforation. Hearing grossly intact. NOSE: External nose normal NECK: Neck supple, non-tender without lymphadenopathy, masses or thyromegaly. CARDIOVASCULAR: Regular rate and rhythm without murmurs, gallops, or rubs. RESPIRATORY: Clear to auscultation. Breath sounds equal bilaterally. No wheezes, rales, or rhonchi. SKIN: warm, Dry, intact with no suspicious lesions or rash, good texture and turgor. NEURO: awake, alert, and oriented to person, place and time. There were no obvious focal neurologic abnormalities. EXTREMITIES: No joint tenderness, effusion, or edema noted. Course Course Level of Care: Express Care Visit Vital Signs Vital signs: Vital Signs Temperature 36.6 C 01/10/24 17:22 Pulse Rate 95 01/10/24 17:22 Respiratory Rate 20 01/10/24 17:22 Blood Pressure 124/76 01/10/24 17:22 Pulse Oximetry 98 01/10/24 17:22 Oxygen Delivery Room Air 01/10/24 17:22 Temperature 36.6 C 01/10/24 17:22 Pulse Rate 95 01/10/24 17:22 Respiratory Rate 20 01/10/24 17:22 Blood Pressure 124/76 01/10/24 17:22 Pulse Oximetry 98 01/10/24 17:22 Oxygen Delivery Room Air 01/10/24 17:22 Reviewed MDM - Allergic Reaction MDM Narrative Medical decision making narrative: Patient is aware of diagnosis, understands and agrees to treatment plan. Anticipatory guidance given. Patient agrees to follow-up as directed and is aware of reasons to seek care at the emergency depar
== END 2024-01-10 17:50 | disposition home or self-care (01) ==
PROVIDERS: Emergency Provider Nurse Practitioner Family; PCP Nurse Practitioner Family
DX: T63.461A Toxic effect of venom of wasps, accidental (unintentional), initial encounter (principal); F17.210 Nicotine dependence, cigarettes, uncomplicated; F41.9 Anxiety disorder, unspecified; F32.A Depression, unspecified
CPT/HCPCS: 99213; G0463

== ENCOUNTER 2024-03-24 09:47 | Emergency (ER) | payer OTHER, SELFPAY ==
[2024-03-24 09:59] VITALS: BP 127/79; PULSE 90; RESP 16; TEMP 36.9; O2SAT 100
--- NOTE | 2024-03-24 10:03 | ED.URI ---
HPI - URI/Sore Throat General Chief Complaint: Upper Respiratory Infection Stated Complaint: Sore Throat History of Present Illness HPI Narrative: 38 Year old female presented for complaint of sore throat when she woke today. Also reports cough, headache, nasal congestion and body aches intermittently for a month. Also reports right lower dental pain and is planning to have full extraction. Denies sob, wheezing, n/v/d/f/c. Related Data Home Medications Medication Instructions Recorded Confirmed escitalopram oxalate 5 mg tablet 5 mg PO DAILY 11/11/23 01/10/24 buspirone 5 mg tablet 5 mg PO BID 01/10/24 01/10/24 Allergies Allergy/AdvReac Type Severity Reaction Status Date / Time No Known Allergies Allergy Verified 11/11/23 18:57 Review of Systems Review of Systems: CONSTITUTIONAL: Denies body aches, fever, chills, or sweats. EYES: Denies visual changes, redness, or discharge. ENT: reports dental pain, rhinorrhea, congestion, sore throat. CARDIOVASCULAR: Denies chest pain, palpitations, or edema. RESPIRATORY: Denies dyspnea. GASTROINTESTINAL: Denies abdominal pain, nausea, vomiting, or diarrhea. SKIN: Denies rash MUSCULOSKELETAL: Denies back pain, joint pain, or myalgia. NEUROLOGIC: Denies headache [facility] Past Medical History Medical History Anxiety and depression Social History Social History Smoking packs per day: 0.5 Smoking cigarettes per day: 10.0 Years smoked: 17 Smoking pack-years: 8.50 Smoking status: Current every day smoker Tobacco type: cigarettes Exam Narrative: GENERAL: well-appearing, no acute distress. EYES: conjunctivae clear ENT: Mucous membranes moist. Right lower dental pain at location of #31; broken tooth with surrounding gum swelling and tenderness. TMs pearly ortiz with normal light reflex bilaterally; no tragal tenderness. Oropharynx erythematous without lesions. Tonsils not enlarged and without exudate. No drooling, no hoarseness, no trismus, uvula midline. No tripod positioning, hot potato voice, or soft palate swelling. NECK: Supple. No lymphadenopathy CHEST: Clear to auscultation, breath sounds equal. No respiratory distress, speaks in full sentences. HEART: Regular rate and rhythm. SKIN: Warm, dry, no rash. NEURO: Alert and oriented x3. Course Course Emergency Course: Patient is aware of diagnosis, understands and agrees to treatment plan. Anticipatory guidance given. Patient agrees to follow-up as directed and is aware of reasons to seek care at the emergency department. Portions of this record may have been created with voice recognition software Level of Care: Express Care Visit Vital Signs Vital signs: Vital Signs Temperature 98.4 F 03/24/24 09:59 Pulse Rate 90 03/24/24 09:59 Respiratory Rate 16 03/24/24 09:59 Blood Pressure 127/79 03/24/24 09:59 Pulse Oximetry 100 03/24/24 09:59 Oxygen Delivery Room Air 03/24/24 09:59 Temperature 98.4 F 03/24/24 09:59 Pulse Rate 90 03/24/24 09:59 Respiratory Rate 16 03/24/24 09:59 Blood Pressure 127/79 03/24/24 09:59 Pulse Oximetry 100 03/24/24 09:59 Oxygen Delivery Room Air 03/24/24 09:59 MDM - URI/Sore Throat MDM Narrative Medical decision making narrative: Neg strep result reviewed with pt. discussed physical exam findings c/w right lower dental abscess, URI. Reviewed Rx. Advise supportive treatments. Patient is appropriate for outpatient treatment and follow-up. Differential Diagnosis Differential diagnosis: Likely upper respiratory infection, otitis media, sinusitis, viral infection and pharyngitis Discharge Plan Discharge Clinical Impression: Upper respiratory infection, Dentalgia Patient Disposition: Home, Self-Care Condition: Stable Instructions: Antibiotic Form, Dental Abscess (ED), Upper Respiratory Infection (ED)
[2024-03-24 10:12] LABS: EDSTREPNEGPOS1 Negative (Negative)
== END 2024-03-24 10:22 | disposition home or self-care (01) ==
PROVIDERS: Emergency Provider Nurse Practitioner Family; PCP Nurse Practitioner Family
DX: J06.9 Acute upper respiratory infection, unspecified (principal); K08.89 Other specified disorders of teeth and supporting structures; F17.210 Nicotine dependence, cigarettes, uncomplicated
CPT/HCPCS: 87081; 87880; 99213; G0463